=== PATIENT | female | born 1985 | race Asian ===

== ENCOUNTER 2017-07-13 17:39 | Emergency (ER) | payer OTHER ==
[2017-07-13 18:03] VITALS: BP 126/80
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
== END 2017-07-13 20:13 | disposition home or self-care (01) ==
LOC: ED 17:39
DX: S00.03XA Contusion of scalp, initial encounter (principal); S00.531A Contusion of lip, initial encounter; Y08.89XA Assault by other specified means, initial encounter
CPT/HCPCS: 99282; 99283